=== PATIENT | female | born 1935 | race Caucasian/White ===

== ENCOUNTER 2018-02-23 09:12 | Outpatient (CLI) | payer MEDICARE, OTHER ==
[2018-02-23 11:37] LABS: MEAN CORPUSCULAR HEMOGLOBIN 23.3 pg (28.0-34.0)
[2018-02-23 11:39] LABS: ANISOCYTOSIS 1+ (NEGATIVE); BASOPHILS % 1 % (0-2); EOSINOPHILS % 2 % (0-7); HYPOCHROMASIA 1+ (NEGATIVE); MONOCYTES % 7 % (0-11); SEGMENTED NEUTROPHILS % 77 % (39-79)
[2018-02-23 11:40] LABS: ACANTHOCYTES 1+ (NEGATIVE); OVALOCYTES 3+ (NEGATIVE); PLT EST. EST. AGREES W/PLT CT; TARGET CELLS 1+ (NEGATIVE)
== END 2018-02-23 09:17 | disposition home or self-care (01) ==
LOC: LAB 09:12
PROVIDERS: ATTEND Nurse Practitioner Family
DX: R71.8 Other abnormality of red blood cells (principal)
CPT/HCPCS: 36415; 85025